=== PATIENT | male | born 1955 | race Caucasian/White ===

== ENCOUNTER 2018-04-22 17:56 | Emergency (ER) | payer MEDICARE, OTHER, MEDICAID ==
[2018-04-22] MEDS: KETOROLAC 30 MG INJ IM (21:37)
== END 2018-04-22 23:57 | disposition home or self-care (01) ==
LOC: FTE 17:56
DX: M54.5 Low back pain (principal); I10 Essential (primary) hypertension; E11.9 Type 2 diabetes mellitus without complications
CPT/HCPCS: 72100; 96372; 99284-25